=== PATIENT | male | born 1955 | race Caucasian/White ===

== ENCOUNTER → 2016-10-08 | Outpatient (CLI) | payer OTHER ==
[~2016-10-08] MED LIST: 24 HOUR ALLER15.8 ML; ALEVE220 M1 PO; AMLODIPINE BESY10 MG PO; AMLODIPINE BESYL5 MG PO; ASPIR-TRIN325 MG PO; HYZAAR 100-25 T1 TAB PO; LORTAB 10-3251 EACH PO; LORTAB 5/500 TA1 TA1 PO; LOSARTAN-HCTZ1 EAC2 PO; LOVASTATIN20 MG PO; NICOTINE1 EAC1 TD; SKELAXIN PO; TYLENOL325 M1 PO
--- NOTE | ~2016-10-08 | CO ---
Unit #: [id number] #: [id number] Patient: PALLAVI LOUISE [id number] [address] [place], [place] [address] [id number] O MR#: [id number] NAME: PALLAVI LOUISE. ROOM: Age: Sex: M Admission Date: 10/08/2016 : 1955 Attending Physician: Nicholas Branham M.D. Primary Care Physician: Mike Buck M.D. Consultation Date: 10/08/2016 CONSULTATION REPORT REASON FOR CONSULTATION Preoperative medical evaluation prior to left total knee arthroplasty scheduled by Dr. Branham for 10/03. HISTORY OF PRESENT ILLNESS The patient is a 60-year-old male who presents for preprocedure screening for the reasons indicated above. He complains of left knee pain today but has no other complaints at this time. He denies chest and upper back, arm, neck and jaw pain, pressure. He denies shortness of air, orthopnea, dyspnea on exertion and PND. He has a history of sleep apnea which resolved after he underwent Gabriella fundoplication surgery and had a 40 pound weight loss associated with the procedure. He denies syncope, presyncope, dizziness, lightheadedness and palpitations. He denies history of myocardial infarction, CHF, CVA, TIA, diabetes mellitus and kidney disease. He has been evaluated by Dr. Branham and scheduled for the procedures dictated above. PAST MEDICAL HISTORY 1. Osteoarthritis. 2. Hypertension. 3. Tobacco use. 4. ETOH use. 5. GERD. 6. ROMAIN, resolved after weight loss. 7. Hyperlipidemia. 8. Hidradenitis of the axilla. 9. History of MRSA. PAST SURGICAL HISTORY 1. Neck and back surgery. 2. Gabriella fundoplication. Excision of left hand ganglion cyst. The patient denies a personal and family history of complications to anesthesia. ALLERGIES Denies latex allergy and denies medication allergies. CURRENT MEDICATIONS 1. Amlodipine besylate 5 mg p.o. daily. 2. Losartan/hydrochlorothiazide 100/12.5 mg tab, one p.o. daily. 3. 24 hour Allergy Relief, two sprays in each naris daily. 4. Aleve 440 mg p.o. daily p.r.n. pain. Unit #: [id number] #: [id number] Patient: PALLAVI LOUISE SOCIAL HISTORY The patient smokes one pack of cigarettes daily and has done so for the past 50 years. He consumes a 12-pack of beer weekly. He denies illicit drug use. FAMILY HISTORY Per review of Dr. Branham's office note: Mother - heart disease and myocardial infarction. Father - cancer. REVIEW OF SYSTEMS A ten point review of systems was conducted and negative except as indicated under History of Present Illness above. PHYSICAL EXAMINATION GENERAL: 60-year-old male awake, alert, in no acute distress. VITAL SIGNS: Temperature 97.7, heart rate 78, respiratory rate 16, blood pressure 142/97. Oxygen saturation 100% on room air. HEENT: Atraumatic, normocephalic. Sclerae anicteric. No discharge from mouth, ears or nares. LYMPHS: No preauricular, postauricular, tonsillar, submental, anterior, posterior, cervical adenopathy. ENDOCRINE: No thyromegaly or thyroid nodules. RESPIRATORY: Clear to auscultation in all tineo bilaterally without wheezes, rhonchi or rales. CARDIOVASCULAR: S1, S2. Regular rate and rhythm without murmur or rub. ABDOMEN: Bowel sounds positive x4. Soft, nontender, nondistended. EXTREMITIES: No edema, cyanosis or clubbing. MUSCULOSKELETAL: Strength 5/5 all extremities bilaterally to flexion/extension. NEURO: Alert and oriented x3. Speech clear. Cranial nerves II-Xii grossly intact. Follows commands. Hand grasp 2+ bilaterally. DIAGNOSTIC STUDIES LABORATORY: WBC 8.8, hemoglobin 15.8, hematocrit 47.6, platelets 218,000, sodium 139, potassium 4.0, chloride 101, CO2 31, glucose 87, BUN 9, creatinine 0.9, calcium 9.4, AST 20, ALT 17, alkaline phos. 82, bili total 0.6, total protein 7.6, albumin 4.3, PT 10.0, INR 1.0. Urinalysis - negative with neither microscopic nor culture indicated. Blood type A positive. Antibody screen negative. MRSA nasal screen pending at this time. IMAGIN-view chest x-ray report pending at this time. CARDIOVASCULAR: 12-lead EKG normal sinus rhythm, normal ECG. Confirmed report pending at this time. IMPRESSION The patient is a 60-year-old male who presents for preprocedural screening for: 1. Preoperative medical evaluation prior to left total knee arthroplasty: The patient's Chau Revised Cardiac Risk Index is equal to 0.4%. This represents the patient's perioperative risk of cardiac , fatal or nonfatal myocardial infarction, cardiopulmonary arrest, arrhythmia and/or pulmonary edema. This has Unit #: [id number] #: [id number] Patient: ASPENPALLAVI D been discussed with the patient and he wishes to proceed with surgery as scheduled at this time. Please note - this patient has been scheduled by his primary care physician, Dr. Buck, to have a preoperative cardiac stress test. Therefore, preoperative cardiac clearance is pending at this time. 2. Hypertension, mildly elevated but stable: Monitor and adjust medications postoperatively if indicated. 3. Tobacco use: Advised smoking cessation. Will order nicotine patch transdermally postoperatively if needed for nicotine withdrawal. 4. ETOH use: The patient is stable at this time. Will monitor for signs and symptoms of ETOH withdrawal postoperatively. 5. History of back/neck surgery. 6. History of Gabriella fundoplication. 7. History of obstructive sleep apnea, resolved after weight loss. 8. Gastroesophageal reflux disease> Hyperlipidemia. 9. History of methicillin resistant Staph aureus: The patient will be placed on in-contact precautions postoperatively. 10. History of hidradenitis of the axilla. Thank you for allowing us to participate in the care of this patient. Will gladly follow for postop medical management pending order of Dr. Branham. Dictated by... Nehemiah Gamez M.D. RLC/tor TD: 10/09/2016 08:42 JOB #: [id number] CONSULTATION REPORT Page 1 of 1 X Alisson Bishop APRN X CONSULTATION REPORT
--- NOTE | ~2016-10-08 | EKG ---
PATIENT: PALLAVI LOUISE UNIT #: [id number] Ventricular Rate: 69 BPM Atrial Rate: 69 BPM P-R Interval: 148 ms QRS Duration: 94 ms Q-T Interval: 420 ms QTC Calculation(Bezet): 450 ms P [place]: 18 degrees Calculated R [place]: 4 degrees Calculated T [place]: 32 degrees Diagnosis Line: Normal sinus rhythm Diagnosis Line: Normal ECG Diagnosis Line: No previous ECGs available Diagnosis Line: Confirmed by LUIS LIZ MD ([id number]) on 10/09/2016 Diagnosis Line: 9:19:57 AM INTERPRETING MD: SHALONDA WADE
--- NOTE | ~2016-10-08 | CR63 ---
[facility] A Service of [facility] RADIOLOGY TEXT RESULTS PATIENT: PALLAVI LOUISE LOCATION: [facility] : [birth year] UNIT #: [id number] AGE: [address]: Nicholas Branham MD SEX: M ORDER DR: [id number] [facility] [address] [place], [place] [address] [id number] O MR#: [id number] Acc #: [id number] NAME: PALLAVI LOUISE. : 1955 SEX: M STUDY DATE/TIME: 10/08/2016 11:42 UNIT: [facility] ROOM: STUDY DESCRIPTION: CR Chest 2 View Attending Physician: Nicholas Branham M.D. Referring Physician: Nicholas Branham M.D. Ordering Physician: Nicholas Branham M.D. Primary Care Physician: Mike Buck M.D. MEDICAL IMAGING REPORT This report is preliminary unless electronic signature is present EXAM Two view chest. 10/08/2016. HISTORY A 60-year-old male patient, preop left total knee arthroplasty. Osteoarthritis left knee. COMPARISON STUDIES 11/15/2012. PA and lateral chest views show normal cardiac size and configuration. Hilar structures and mediastinal contours are preserved. Bilateral lungs are expanded and clear. IMPRESSION Negative chest. Dictated by... Derrick Araya M.D. THIS IS AN ELECTRONICALLY VERIFIED REPORT Derrick Araya M.D. at 10/09/2016 8:01 AM Joan TD: 10/08/2016 16:11 JOB #: [id number] MEDICAL IMAGING REPORT Page 1 of 1 COPY
[2016-10-08 10:41] LABS: HEMATOCRIT 47.6 % (38.0-50.0); HEMOGLOBIN 15.8 gm/dL (13.0-16.0); MEAN CORPUSCULAR HEMOGLOBIN 29.1 PG (28-34); MEAN CORPUSCULAR HGB CONC 33.1 g/dL (30-36); MEAN PLATELET VOLUME 8.1 FL (6.5-11.5); RED BLOOD COUNT 5.41 X10e (3.90-5.60); RED CELL DISTRIBUTION WIDTH 14.3 % (11.0-15.5); WHITE BLOOD COUNT 8.8 X10e3 (4.0-10.5)
[2016-10-08 11:09] LABS: URINE APPEARANCE CLEAR; URINE BILIRUBIN NEG (NEG); URINE BLOOD NEG (NEG); URINE COLOR YELLOW; URINE GLUCOSE NEG (NEG); URINE KETONE NEG (NEG); URINE LEUKOCYTE ESTERASE NEG (NEG); URINE NITRATE NEG (NEG); URINE PROTEIN NEG (NEG); URINE SPECIFIC GRAVITY 1.004 (1.003-1.035); URINE UROBILINOGEN 0.2 MG/DL (NEG)
[2016-10-08 11:11] LABS: URINE SOURCE CLEAN CATCH
[2016-10-08 11:13] LABS: CULTURE INDICATED? NO
[2016-10-08 11:19] LABS: ALBUMIN SERUM 4.3 g/dL (3.5-5.0); ALKALINE PHOSPHATASE 82 U/L (32-92); ALT (SGPT) 17 U/L (10-40); AST (SGOT) 20 U/L (10-42); BILIRUBIN,TOTAL 0.6 mg/dL (0.2-2.0); BLOOD UREA NITROGEN 9 mg/dL (9-23); CALCIUM SERUM 9.4 mg/dL (8.4-10.2); CARBON DIOXIDE 31 mmol/L (22-31); CHLORIDE 101 mmol/L (100-111); CREATININE SERUM 0.9 mg/dL (0.6-1.4); GLOM FILT RATE Estimated ABOVE60 mL/min (>60); GLUCOSE FASTING 87 mg/dL (70-110); PROTEIN TOTAL SERUM 7.6 g/dL (6.0-8.3); SODIUM 139 mmol/L (135-145)
== END | disposition home or self-care (01) ==
LOC: CAMB 10:07
PROVIDERS: Orthopaedic Surgery
DX: Z01.818 Encounter for other preprocedural examination (principal); M17.12 Unilateral primary osteoarthritis, left knee; I10 Essential (primary) hypertension; F17.200 Nicotine dependence, unspecified, uncomplicated; K21.9 Gastro-esophageal reflux disease without esophagitis; E78.5 Hyperlipidemia, unspecified; Z86.14 Personal history of Methicillin resistant Staphylococcus aureus infection
CPT/HCPCS: 36415; 71020; 80053; 81003; 85027; 85610; 86850; 86900; 86901; 87070; 93005

== ENCOUNTER 2016-10-27 05:16 | Inpatient (IN) | payer OTHER ==
--- NOTE | ~2016-10-27 | DS ---
Unit #: [id number] #: [id number] Patient: PALLAVI LOUISE [id number] [facility] [address] [place], [place] [address] [id number] I MR#: [id number] NAME: PALLAVI LOUISE. ROOM: [facility] Age: 60 Sex: M Admission Date: 10/27/2016 : 1955 Discharge Date: 10/28/2016 Attending Physician: Nicholas Branham M.D. Primary Care Physician: Mike Buck M.D. DISCHARGE SUMMARY CONSULTING PHYSICIAN HIPS for medical management. REASON FOR ADMISSION Severe osteoarthritis of the left knee. PROCEDURES Left total knee arthroplasty. HOSPITAL COURSE The patient was admitted to [facility] with a history of severe osteoarthritis about the knee. The patient had undergone the above procedure. Today the patient is in stable condition. His temperature is 97.9, blood pressure 110/55 heart rate is 58 and regular, respirations 18. His incision is healing well. Neurovascular exam was intact. He has 2+ pulses in his lower extremity. Plan will be to send him home later today. The patent is willing and is requesting to go home. DISPOSITION Home with home health. PERTINENT LABS Hemoglobin 10.5. MEDICATIONS Per med rec. She will be on all of his regular home medication. The addition of hydrocodone for pain control and aspirin 325 mg twice a day for DVT prophylaxis. FOLLOWUP INSTRUCTIONS Patient will be discharged home later today under the care of [facility] and will be on aspirin 325 mg twice a day. The patient will wear JOELLE hose during he day and off at night. The patient shouldn't drive until seen by Dr. Branham on 12/02/2016. The patient will participate in physical therapy including active-active assist range of motion, strengthening, progression ambulation and begin with a walker, progress to a cane as tolerated. Dictated by... Luis Saavedra P.A.-C- for Nicholas Branham M.D. KASIA/trina Unit #: [id number] #: [id number] Patient: PALLAVI LOUISE TD: 10/28/2016 09:11 JOB #: [id number] DISCHARGE SUMMARY Page 1 of 1 X X DISCHARGE SUMMARY
--- NOTE | ~2016-10-27 | OR ---
Unit #: [id number] #: [id number] Patient: PALLAVI LOUISE [id number] [address] [place], [place] [address] [id number] I MR#: [id number] NAME: PALLAVI LOUISE. ROOM: [facility] Date of Procedure: 10/27/2016 Admission Date: 10/27/2016 Surgeon: Nicholas Branham M.D. : 1955 Attending Physician: Nicholas Branham M.D. Primary Care Physician: Mike Buck M.D. OPERATIVE REPORT PREOPERATIVE DIAGNOSIS Primary localized osteoarthritis of left knee. POSTOPERATIVE DIAGNOSIS Primary localized osteoarthritis of left knee. PROCEDURE PERFORMED Left total knee. ASSISTANTS Marisela Alegria and Ezequiel Foley. ANESTHESIA Adductor canal block plus general. ESTIMATED BLOOD LOSS 100 mL. INDICATIONS FOR SURGERY This is a 60-year-old with a severe pain in his left knee. He has had pain for months. It is getting progressively worse. His x-ray showed he has [id number] with subchondral sclerosis and periarticular osteophytes. He has tried injections and anti-inflammatories with no relief of his pain. Pain limits his walking, standing, interrupted sleep, and other activities of daily living. He is brought to the hospital today for a left total knee. DESCRIPTION OF PROCEDURE The patient was brought to the holding room, given 1 g of Ancef. He was then given an adductor canal block and brought back to the operating room, given a general anesthetic. Tourniquet placed around the left leg. Left leg was prepped and draped in a sterile fashion. A tourniquet inflated to 250. A straight anterior skin incision was made. The subcutaneous dissected away and a medial arthrotomy performed. Patella was slid to the side. Osteophytes removed from the femur. The intramedullary guide was used and a 6-degree valgus cut was made on the distal femur. The femur was sized and found to be a size 4. The anterior-posterior cutting block was applied. Rotation was checked in the knee. Anterior and posterior cuts were made along with the chamfer cuts. Proximal tibial cut was made using a 0-degree cutting block. It was sized at a 3. We then injected the posterior capsule and the periosteum with ropivacaine mixture. The remaining meniscal fragments were debrided. Trial femur was applied. The Unit #: [id number] #: [id number] Patient: PALLAVI LOUISE drill holes were made for lugs on the femoral component. Trial tibia was applied with first an 8 and then a 10 insert. The 10 gave better stability and the knee still came to full extension. The external alignment guide was applied. Rotation of the tibia was marked. The patella was grasped with 2 towel clips, measured 24 mm thick, cut smooth at 13 and a 38 patella was the appropriate size. The 3 drill holes were made. Trial patella applied and it tracked properly. We then removed all the trials, used the drill and punch for the tibial tray. The knee was irrigated and dried while the cement was mixed. Then, all 3 components were cemented simultaneously. Once again, it was a size 4 femur, size 3 tray and a 38 patella from the [employer] knee system. Any excess cement was removed and after the cement was hardened, it was judged that the 10 insert was the appropriate thickness. This was applied to the tibial tray. The knee came to full extension and good stability in extension and flexion. The tourniquet had been released. Hemostasis was obtained. The rest of ropivacaine mixture was injected and then the wound was closed using 0 Ethibond in the arthrotomy, 0 and 2-0 Vicryl in the subcutaneous, and keerthi in the skin. The patella tracked properly with the arthrotomy cuts. program support assistant, Marisela Alegria, was present throughout the entire case. Dictated by... Scout Grider/steve TD: 10/28/2016 03:33 JOB #: [id number] OPERATIVE REPORT Page 1 of 1 X Nicholas Branham MD X PROCEDURE OPERATIVE NOTE
[~2016-10-27 05:16] MED LIST changes: -ASPIR-TRIN325 MG PO; -LORTAB 10-3251 EACH PO; -NICOTINE1 EAC1 TD; -TYLENOL325 M1 PO
[2016-10-27 06:31] LABS: PROTHROMBIN TIME (PATIENT) 10.2 SECONDS (9.6-11.5)
[2016-10-28 02:55] LABS: HEMATOCRIT 40.4 % (38.0-50.0)
[2016-10-28 03:14] LABS: BUN/CREATININE RATIO 15.45; CREATININE SERUM 1.1 mg/dL (0.6-1.4); GLOM FILT RATE Estimated 72.1 mL/min (>60); MAGNESIUM 2.1 mg/dL (1.6-3.0); POTASSIUM 4.2 mmol/L (3.5-5.1)
[2016-10-28] MEDS ORDERED: NICOTINE1 EAC1 TD (10:03)
[2016-10-28] MEDS ORDERED: ASPIR-TRIN325 MG PO (10:03)
[2016-10-28] MEDS ORDERED: LORTAB 10-3251 EACH PO (10:04)
[2016-10-28] MEDS ORDERED: TYLENOL325 M1 PO (10:30)
== END 2016-10-28 12:02 | disposition home health service (06) | DRG 470 ==
LOC: CSUR 05:16 → CPACUOF 06:48 → C4B 09:45
PROVIDERS: Nurse Practitioner; Orthopaedic Surgery
PROC: 0SRD0J9 Replacement of Left Knee Joint with Synthetic Substitute, Cemented, Open Approach (ICD-10-PCS; principal; 2016-10-27 07:30)
DX: M17.12 Unilateral primary osteoarthritis, left knee (principal); I10 Essential (primary) hypertension; J44.9 Chronic obstructive pulmonary disease, unspecified; F17.210 Nicotine dependence, cigarettes, uncomplicated; K21.9 Gastro-esophageal reflux disease without esophagitis; Z82.49 Family history of ischemic heart disease and other diseases of the circulatory system; E78.00 Pure hypercholesterolemia, unspecified; Z80.9 Family history of malignant neoplasm, unspecified
CPT/HCPCS: 80048; 83735; 85014; 85018; 85610; 94760; 97110; 97116; 97161; 97165; 97535; C1776; J0131; J0171; J0690; J0735; J1100; J1170; J1885; J2250; J2405; J2795; J3010